=== PATIENT | female | born 1960 | race Caucasian/White ===

== ENCOUNTER 2024-03-07 11:28 | Emergency (ER) | payer MEDICARE, OTHER ==
[~2024-03-07] VITALS: Ht 160 cm; Wt 97.1 kg
--- NOTE | 2024-03-07 13:56 | HMCIMG ---
KNEE 3VWS LT REASON: pain TECHNIQUE: 3 views were obtained. FINDINGS: There is marked lateral joint space narrowing consistent with osteoarthritis, there is also varus angulation. There is also marked narrowing of the patellofemoral joint space. There is a 2 cm osteochondral loose body present posteriorly in the midline. There are no fractures. Stranding soft tissues appear unremarkable. IMPRESSION: 1. Severe osteoarthritis in the medial and patellofemoral joint spaces. 2. 2 cm osteochondral loose body present posteriorly in the midline.
--- NOTE | 2024-03-07 14:19 | ERN ---
General Chief Complaint: Knee Injury/Swelling Stated Complaint: LEFT KNEE PAIN Time Seen by MD: 11:43 Time Seen by Midlevel: 11:43 Source: patient History of Present Illness Initial Comments Patient is a 63-year-old female presenting to the ER for evaluation of the left knee pain following a fall that occurred approximately over two weeks ago. Patient states the pain has progressively gotten worse. She does report a mechanical ground level fall two weeks ago where she landed on her left knee. Denies any head injury or loss of consciousness. She has an appointment scheduled for operating room specialist than 10 days but states the pain became unbearable so she decided to report to the ER for further evaluation. Past Medical History Past Medical History: Migraines Past Surgical History: Appendectomy ROS Dictation CONSTITUTIONAL: Negative except for HPI HEAD/FACE: Negative except for HPI EENT: Negative except for HPI RESPIRATORY: Negative except for HPI GASTROINTESTINAL/ABDOMINAL: Negative except for HPI GENITOURINARY: Negative except for HPI MUSCULOSKELETAL: Negative except for HPI INTEGUMENTARY: Negative except for HPI NEUROLOGICAL/PSYCH: Negative except for HPI HEMATOLOGIC/LYMPHATIC: Negative except for HPI All Systems Negative, Except as noted above. 13 point review of systems assessed and all negative except for above. Physical Exam Physical Exam Dictation Vital Signs reviewed General Appearance: Alert, oriented x 3, no acute distress, well developed, nourished. Head and Face: non-traumatic. Eyes: PERRL, pink conjunctivas, eyelid no trauma, anterior chamber with arcus senilis. Ears: Pinnas intact and no signs of trauma or erythema ear canals clear and no discharge TM no erythema Nose: No discharge, no bleeding. Oropharynx: Mouth normal, tongue pink, pharynx clear,no erythema, tonsils no exudates, no abscesses noted, mucous membrane moist Neck: Supple, non-tender, no thyromegaly, no masses, no JVD, no bruits Breast:Deferred Chest:No tenderness, no crepitus, no paradoxical movement, no retractions Lungs:Clear, well-ventilated, symmetric, no rales, no wheezing, no rhonchi, no stridor, good breath sounds bilaterally Heart: Regular rate, regular rhythm, no murmur, no gallops Vascular: no peripheral edema, Abdomen: Soft, positive bowel sounds, nondistended, no guarding, nontender, no rebound, no masses no hepatomegaly, no splenomegaly, no Toussaint's sign, no hernias. Rectal: Deferred Genital: Deferred Neurological: Normal speech, motor function intact, sensory function intact Musculoskeletal: Neck nontender, full range of motion, back nontender, full range of motion, Extremities: Mild anterior tenderness of the left knee, full range of motion Skin: Color pink, dry, no turgor, no rash, no lacerations, no abrasions, no contusions. Lymphatic: Deferred MDM MDM: Patient is a 63-year-old female presenting to the ER for evaluation of the left knee pain following a fall that occurred approximately over two weeks ago. Patient states the pain has progressively gotten worse. She does report a mechanical ground level fall two weeks ago where she landed on her left knee. Denies any head injury or loss of consciousness. She has an appointment scheduled for operating room specialist than 10 days but states the pain became unbearable so she decided to report to the ER for further evaluation. On physical examination patient has some mild tenderness over the anterior left knee however range of motion is intact. There is a normal popliteal pulse. 2+ DP, PT pulses bilaterally. Sensation is intact. Patient is ambulatory but she was using crutches from home. Her knee x-ray shows severe osteoarthritis in the medial and patellofemoral joint spaces.There is also a 2 cm osteochondral loose body present posteriorly in the midline. No acute fractures are visualized. The patient was offered a knee immobilizer. We discussed with the risk of falling however she would like to try the knee immobilizer. She states she has enough help at home with her that she does not believe she will fall. No other symptoms reported at this time. Patient is stable for discharge. Differential diagnosis: Fracture, dislocation, arthritis There are no social concerns with this patient. Prescription drug management Prescriptions will include: None Medical management and examination interpretation discussions were had by me with other qualified healthcare professionals as indicated for the patient's care. ED Course Orders Procedure Category Date Status Time Knee 3vws Lt RAD 03/07/24 Resulted 11:44 Morphine 2mg Syg PHA 03/07/24 Logged (Morphine 2mg Syg) 14:30 Ketorolac PHA 03/07/24 Logged Tromethamine 15mg/Ml 14:30 Knee Immobilizer ALYX 03/07/24 In Process 14:13 Vital Signs Date Time Temp Pulse Resp B/P (MAP) Pulse Ox O2 Delivery O2 Flow Rate FiO2 03/07/24 11:43 98.4 89 20 136/75 99 Room Air 0 [facility] [address] [place] [address] IMAGING REPORT Signed PATIENT: LESIA UBTLER MR#: [id number] : 1960 SEX: F AGE: 63 LOCATION: [facility] ORDER 44 STATUS: REG ER REPORT#: [id number] SERVICE [id number] REASON: pain ORDERING PHYSICIAN: REMY LONGORIA PROCEDURE: KNEE 3V LT - KNEE 3VWS LT KNEE 3VWS LT REASON: pain TECHNIQUE: 3 views were obtained. FINDINGS: There is marked lateral joint space narrowing consistent with osteoarthritis, there is also varus angulation. There is also marked narrowing of the patellofemoral joint space. There is a 2 cm osteochondral loose body present posteriorly in the midline. There are no fractures. Stranding soft tissues appear unremarkable. IMPRESSION: 1. Severe osteoarthritis in the medial and patellofemoral joint spaces. 2. 2 cm osteochondral loose body present posteriorly in the midline. DICTATED BY: BUZZ PAYNE MD DATE: 03/07/241351 ELECTRONICALLY SIGNED BY: BUZZ PAYNE MD DATE: 03/07/241355 DX & DISP Disposition: Discharge Departure Impression: Primary Impression: Osteoarthritis of left knee Condition: Stable Additional Instructions: Your left knee x-ray shows severe osteoarthrosis but no evidence of an acute fracture. There is an osteochondral loose body in the posterior aspect of the left knee. You will need to see an operating room specialist. Please keep the appointment you already have scheduled. Follow up with your primary care doctor in 2-3 days for repeat evaluation. You may take Tylenol and Motrin for pain. Return to the ER for any new or worsening symptoms Referrals: SELF,REFERRAL (PCP) Time of Disposition: 14:16 I have reviewed the case, and I agree with, Diagnosis and Plan I performed the substantive portion of the visit. I have reviewed and personally made and approve the management plan that is documented in the note by myself or the MILLY. I acknowledge for responsibility for the patient's management plan. REMY LONGORIA Mar 07, 2024 14:19
[2024-03-07] MEDS: ketOROlac 15MG/ML VIAL (15MG/ML) IM ONE (15:05)
[2024-03-07] MEDS: morPHINE 2 MG SYG IM ONE (15:05)
[2024-03-07 15:12] VITALS: BP 133/84; PULSE 89; RESP 15; TEMP 96.8; O2SAT 93
== END 2024-03-07 15:39 | disposition home or self-care (01) ==
LOC: EDH 11:28
DX: M17.12 Unilateral primary osteoarthritis, left knee (principal); G43.909 Migraine, unspecified, not intractable, without status migrainosus; Z90.49 Acquired absence of other specified parts of digestive tract
CPT/HCPCS: 99284; 73562; 96372 ×2; J2270; J1885